=== PATIENT | male | born 1990 | race Caucasian/White ===

== ENCOUNTER 2020-02-17 17:09 | Emergency (ER) | payer SELFPAY ==
[~2020-02-17] VITALS: Ht 170.2 cm; Wt 61.2 kg
[2020-02-17 17:20] VITALS: BP 135/88
--- NOTE | 2020-02-17 17:55 | NUR ---
WOUND DRESSING DONE BY [employer].
--- NOTE | 2020-02-17 18:01 | NUR ---
Patient discharged to home in stable condition. Written and verbal after care instructions given. Patient verbalizes understanding of instruction.
== END 2020-02-17 18:02 | disposition home or self-care (01) ==
LOC: ER 17:13
DX: S61.011A Laceration without foreign body of right thumb without damage to nail, initial encounter (principal); Z88.0 Allergy status to penicillin; W26.0XXA Contact with knife, initial encounter; Y93.E8 Activity, other personal hygiene; Y92.89 Other specified places as the place of occurrence of the external cause; Y99.8 Other external cause status

== ENCOUNTER 2024-11-25 10:23 | Emergency (ER) | payer OTHER ==
[~2024-11-25] VITALS: Ht 170.2 cm; Wt 59.0 kg
[2024-11-25] MEDS: IV NS 0.9% 1,000 ML BAG IV ONE ×2 (11:30→13:00)
[2024-11-25] MEDS: ONDANSETRON HCL/PF 4 MG/2 ML VIAL IVP ONE (11:30)
[2024-11-25] MEDS ORDERED: ONDANSETRON HCL/PF 4 MG/2 ML VIAL ONE ×2 (11:30→15:03)
[2024-11-25 11:43] LABS: BASOPHILS % (AUTO) 0.1 % (0.0-2.0); EOSINOPHILS % (AUTO) 0.3 % (0.0-6.0); HEMATOCRIT 54 % (39-51); HEMOGLOBIN 18.4 g/dL (13.5-17.5); LYMPHOCYTES % (AUTO) 7.6 % (20.0-44.0); MEAN CORPUSCULAR HEMOGLOBIN 26 PG (26.0-33.0); MEAN CORPUSCULAR HGB CONC 34 g/dl (31.0-36.0); MEAN CORPUSCULAR VOLUME 77 fL (80-96); MONOCYTES # (AUTO) 0.6 K/uL (0.1-1.30); MONOCYTES % (AUTO) 4.2 % (2.0-12.0); NEUTROPHILS # (AUTO) 11.8 K/uL (1.8-8.9); NEUTROPHILS % (AUTO) 87.8 % (43.0-81.0); PLATELET COUNT (AUTO) 297 K/uL (150-450); RED BLOOD CELL COUNT(AUTO) 7.01 MIL/uL (4.5-6.0); RED CELL DISTRIBUTION WIDTH 14.2 % (11.5-15.0); WHITE BLOOD COUNT (AUTO) 13.4 K/uL (4.3-11.0)
[2024-11-25 11:50] LABS: CALCIUM, SERUM 10.2 mg/dL (8.5-10.1); CARBON DIOXIDE 29 mmol/L (21-32); CHLORIDE 96 mmol/L (98-107); GLUCOSE 121 mg/dL (74-106); POTASSIUM 3.9 mmol/L (3.5-5.1); SODIUM SERUM 138 mmol/L (136-145); UREA NITROGEN, BLOOD 30 mg/dL (7-18)
[2024-11-25 11:55] LABS: INR 1.16 (0.91-1.10); PARTIAL THROMBOPLASTIN TIME 26.4 SEC (24.3-34.3); PROTHROMBIN TIME 12.2 SECS (9.2-11.1)
[2024-11-25 11:57] LABS: ALANINE AMINOTRANSFERASE 177 U/L (12-78); ALBUMIN 4.5 g/dL (3.4-5.0); ALKALINE PHOSPHATASE 96 U/L (46-116); ASPARTATE AMINOTRANSFERASE 70 U/L (15-37); BILIRUBIN,DIRECT 0.2 mg/dL (0.0-0.2); BILIRUBIN,TOTAL 0.8 mg/dL (0.2-1.0); LIPASE 18 U/L (16-77); TOTAL PROTEIN, SERUM 9.1 g/dL (6.4-8.2)
[2024-11-25] MEDS: ONDANSETRON HCL/PF - ER 4 MG/2 ML VIAL IV ONE (15:00)
[2024-11-25] MEDS ORDERED: CT SWABBABLE VALVE TRANS SET 1 EA INFUS.SET MC ONE (15:36)
[2024-11-25] MEDS ORDERED: IV NS 0.9% 250 ML IV ONE (15:36)
[2024-11-25] MEDS ORDERED: IOHEXOL-300 100 ML VIAL IV ONE (15:36)
[2024-11-25] MEDS ORDERED: NALO4SPR BNOSTRILS (18:10)
[2024-11-25 18:25] VITALS: BP 126/66; TEMP 98.4; O2SAT 98
== END 2024-11-25 18:26 | disposition home or self-care (01) ==
LOC: ER 10:26
DX: R11.2 Nausea with vomiting, unspecified (principal); E86.0 Dehydration; F11.23 Opioid dependence with withdrawal; F19.10 Other psychoactive substance abuse, uncomplicated; Z65.3 Problems related to other legal circumstances; Z88.0 Allergy status to penicillin; Z59.00 Homelessness unspecified
CPT/HCPCS: 99285; 70450; 96374; 96361; 71045; 93005; 96376; 74177; 85025; 80048; 83690; 80076; 36415; 84484; 85730; J2405 ×2; J7030 ×2; J7050; Q9967